=== PATIENT | female | born 1970 | race Caucasian/White ===

== ENCOUNTER 2020-02-22 02:00 | Observation (INO) | payer MEDICAID ==
[~2020-02-22] VITALS: Ht 160 cm; Wt 76.7 kg
[2020-02-22 02:18] LABS: BASOPHILS 0.5 % (0-2); EOSINOPHILS 1.5 % (0-7); HEMATOCRIT 38.6 % (36.0-48.0); HEMOGLOBIN 12.4 g/dL (12-16); LYMPHOCYTES 33.6 % (15-50); MCH 30.2 pg (26.0-34.0); MCHC 32.1 g/dL (31.0-37.0); MCV 93.9 fL (80.0-100.0); MEAN PLATELET VOLUME 11.1 fL (7.4-10.4); MONOCYTES 6.8 % (2-11); NEUTROPHILS 57.6 % (40-80); PLATELET COUNT 222 10x3/uL (130-400); RBC 4.11 10x6/uL (4.00-5.40); RDW 13.7 % (11.5-14.5)
[2020-02-22 02:23] LABS: CALCIUM 8.5 mg/dL (8.5-10.1); CARBON DIOXIDE 28.6 mmol/L (21.0-32.0); CREATININE - SERUM 0.9 mg/dL (0.6-1.3); POTASSIUM - SERUM 3.6 mmol/L (3.5-5.1)
[2020-02-22 02:28] LABS: BILIRUBIN NEGATIVE (NEGATIVE); GLUCOSE NEGATIVE (NEGATIVE); HCG URINE NEGATIVE (NEGATIVE); KETONE NEGATIVE (NEGATIVE); NITRITE NEGATIVE (NEGATIVE); UROBILINOGEN NORMAL (NORMAL)
[2020-02-22 02:30] LABS: ACETAMINOPHEN 3.2 ug/mL (10.0-30.0); ALBUMIN 3.7 g/dL (3.4-5.0); BILIRUBIN - TOTAL 0.41 mg/dL (0.2-1.3)
[2020-02-22 02:38] VITALS: BP 152/70
[2020-02-22] MEDS ORDERED: NEURONTIN 300300 MG PO (02:40)
[2020-02-22] MEDS ORDERED: LEVOXYL75 MCG PO (02:41)
[2020-02-22] MEDS ORDERED: KLONOPIN1 MG PO (02:41)
[2020-02-22] MEDS ORDERED: ROPINIROLE HCL2 MG PO (02:41)
--- NOTE | 2020-02-22 02:45 | NUR ---
JIG GRINDER SET UP OPERATOR NOTIFIED FOR MENTAL HEALTH EVAL.
[2020-02-22 03:03] LABS: UDS - AMPHET NEGATIVE QUAL (NEGATIVE); UDS - BARB NEGATIVE QUAL (NEGATIVE); UDS - BENZO POSITIVE QUAL (NEGATIVE); UDS - COCAINE POSITIVE QUAL (NEGATIVE); UDS - OPIATE POSITIVE QUAL (NEGATIVE); UDS - PCP NEGATIVE QUAL (NEGATIVE); UDS - THC NEGATIVE QUAL (NEGATIVE)
--- NOTE | 2020-02-22 03:31 | NUR ---
PATIENT IN ER T-3 BEING TREATED FOR AN OVERDOSE ON KLONIPIN. THIS PATIENT WAS GIVEN A DRUG TO "WAKE HER UP", HOWEVER SHE WAS STILL VERY DROWSY, SHE DENIES BEING SUICIDIAL BUT HER ACTION WAS HIGHLY SUGGESTIVE SO SHE WILL BE PLACED ON ONE TO ONE. GETTING THROUGH THE SUICIDE ASSESSMENT WAS VERY DIFFICULT BECAUSE SHE REMAINED DROWSY AND WAS TEARFUL, SHE ALSO HAS EXAGGERATED, BIZZARE FACIAL MOVEMENTS. SHE IS UNABLE TO COMMIT TO A SAFETY PLAN OR SIGN ANY PAPERWORK. 1-800 NUMBER IS NOT GIVEN AT THIS TIME BECAUSE SHE CAN NOT STAY AWAKE NOR IS ABLE TO COMPREHEND.
[2020-02-22 03:55] VITALS: BP 114/65
[2020-02-22 04:00] VITALS: BP 103/69
[2020-02-22 05:00] VITALS: BP 105/68
[2020-02-22 06:00] VITALS: BP 126/81
[2020-02-22 11:54] VITALS: Ht 160 cm; Wt 76.7 kg
--- NOTE | 2020-02-22 12:30 | NUR ---
REPORT RECIEVED. 1:1 CARE ASSUMED. PT IS CALM AND DENIES NEEDS.
--- NOTE | 2020-02-22 15:29 | NUR ---
SITTER AT BEDSIDE. PT CONTINUES TO EXPRESS SUICIDAL THOUGHTS. SHE IS TEARFUL AT TIMES. SUICIDE PRECAUTIONS IN PLACE.
--- NOTE | 2020-02-22 16:49 | NUR ---
PT LEFT ROOM AND WENT OUT SIDE INTO PARKING LOT. I WALKED WITH HER UP [facility] TO [place] AND CONVINCED HER TO COME BACK. SHE WALKED BACK DOWN [place] AND INSTEAD OF COMING BACK IN SAID SHE WAS GOING ACROSS [place] TO SEE HER DOCTOR. SHE WAS INFORMED BY AAMIR ORDOÑEZ NURSE AD SETTER THAT THE POLICE WOULD BE CALLED IF SHE WENT ACROSS. SHE WENT ANYWAY. I WENT WITH HER TO INSURE HER SAFETY AND WAS EVENTUALLY ABLE TO TALK HER INTO RETURNING BACK. SHE WALKED BACK TO HER ROOM. SOON AFTER GETTING BACK DR REED WAS AT BEDSIDE AND TALKED WITH HER. HE ORDERED PSYCH PLACEMENT FOR FURTHER EVAL. PT IS EMOTIONAL BUT CDOOPERATIVE AT THIS TIME.
[2020-02-22 18:30] VITALS: BP 135/86
--- NOTE | 2020-02-22 18:40 | NUR ---
PT HAS TWICE ATTEMPTED TO LEAVE AGAIN AND HAS BEEN TALKED DOWN AND IS BACK IN HER ROOM.
--- NOTE | 2020-02-22 22:10 | NUR ---
SPOKE WITH TRANSFER CENTER AND AWAITING FOR ACCEPTANCE FOR TRANFER.
[2020-02-23 03:55] LABS: BASOPHILS 0.4 % (0-2); EOSINOPHILS 2.5 % (0-7); HEMATOCRIT 40.4 % (36.0-48.0); HEMOGLOBIN 12.9 g/dL (12-16); IMMATURE GRANULOCYTES 0.2 % (0-5); LYMPHOCYTES 28.2 % (15-50); MCH 29.9 pg (26.0-34.0); MCHC 31.9 g/dL (31.0-37.0); MCV 93.5 fL (80.0-100.0); MONOCYTES 9.1 % (2-11); NEUTROPHILS 59.6 % (40-80); PLATELET COUNT 242 10x3/uL (130-400); RBC 4.32 10x6/uL (4.00-5.40); RDW 13.5 % (11.5-14.5); WBC 4.8 10x3/uL (4.8-10.8)
[2020-02-23 04:16] LABS: CALCIUM 8.4 mg/dL (8.5-10.1); CARBON DIOXIDE 25.6 mmol/L (21.0-32.0); CHLORIDE - SERUM 105 mmol/L (98-107); GLUCOSE 105 mg/dL (74-106); POTASSIUM - SERUM 3.2 mmol/L (3.5-5.1); SODIUM 140 mmol/L (136-145)
[2020-02-23 04:32] LABS: CALC OSMOLALITY 277 mosm/kg (275-300); CREATININE - SERUM 0.6 mg/dL (0.6-1.3); UREA NITROGEN 9 mg/dL (7-18); eGFR NON AFRICAN AMERICAN > 90 mL/min (90-120)
--- NOTE | 2020-02-23 07:00 | NUR ---
SLEEPING AROUSABLE TO VERBAL STIMULI, NOT COOPERATIVE, NO IGNS OF DISTRESS, VSS, SITTER AT BEDSIDE, NO NEEDS AT THIS TIME
--- NOTE | 2020-02-23 11:31 | NUR ---
MARIA A ADAME AT [facility] WILL BE HERE BY NOON
--- NOTE | 2020-02-23 12:42 | CN ---
PATIENT NAME:CHARLA VANEGAS MEDICAL RECORD: [id number] : 70 LOCATION:[id number] ADMIT DATE: 02/22/20 ACCOUNT: [id number] CONSULTING PHYSICIAN: PEDRO REED MD REFERRING PHYSICIAN: JUDY DIXON MD DATE OF CONSULTATION: 02/22/2020 IDENTIFYING DATA: The patient is a 49-year-old and she is admitted to the hospital on a voluntary basis. CHIEF COMPLAINT: Overdose. HISTORY OF PRESENT ILLNESS: The patient was found in the parking lot of [facility]. Apparently, she had had a prescription for Klonopin filled and there were 20 one mg tablets missing from it. She was also found to have opiates and cocaine in her urine. She denies using the cocaine. She says that her primary care doctor gives her Percocet for back pain. She also has a history of heroin addiction, but she says that the Percocet is required for the back pain and that the doctor who prescribes it knows that she has a history of heroin addiction. I doubt that is the case, but that is what she is telling me. She endorses numerous neurovegetative depressive symptoms as well as psychosocial stressors, associated with ongoing personal problems and a history of traumatic events. She is oriented. She is generally goal directed in her speech unless she is trying to be deliberately evasive. There are no overt psychotic symptoms. ASSESSMENT: 1. Status post overdose. 2. Major depression. 3. Cluster B personality disorder. 4. Polysubstance abuse. PLAN: The patient in my view is acutely dangerous and requires inpatient psychiatric care. She did have a high degree of lethality with a low degree of discoverability. She also was very agitated and required physical restraints earlier today as well as having elope from the hospital and trying to run across the street for some reason. She is telling me that she does not use cocaine, which leaves the results something of a mystery. On the whole, I would say her presentation is of concern and I think that she is at enough risk based upon what happened and her presentation that I am compelled to recommend inpatient psychiatric care. She also should be continued with a sitter until that transfer happens. TRANSINT:[id number] Voice Confirmation ID: [id number] DOCUMENT ID: [id number] PEDRO REED MD at 1242 CC: [id number] DICTATION DATE: 02/22/20 180 INSURANCE VERIFICATION REPRESENTATIVE: 02/22/20 182 ADM IN [place] [id number] [place] [id number]
--- NOTE | 2020-02-23 15:02 | NUR ---
DAUGHTER CUATE HERE FOR RETRIVAL OF KEYS, CAR KEYS TAKEN TO FRONT ENTRANCE OF HOSPITAL AND GIVEN TO HER
--- NOTE | 2020-02-23 19:44 | MORECARE ---
CASE MANAGEMENT DISCHARGE SUMMARY PATIENT: CHARLA VANEGAS UNIT: [id number] ADM DATE: 02/22/20 AGE: 49 : 70 SEX: F ROOM/BED: D.2310 AUTHOR: YULISA ENRIQUEZ PHYSICIAN: REFERRING PHYSICIAN: JUDY DIXON MD DATE OF SERVICE: 02/23/20 Discharge Plan Patient Name: CHARLA VANEGAS [facility] [facility] 1970 Planned Disposition: Anticipated Discharge Date: Discharge Date: 02/23/2020 Expected LOS: Initial Reviewer: [email or web address] Initial Review Date: 02/22/2020 Generated: 02/23/20 8:44 pm Patient Name: CHARLA VANEGAS Page [id number] at 1944 All edits/amendments must be made on the electronic document DICTATION DATE: 02/23/201943 MANAGER PRACTICE: MARITZA 02/23/201943 RPT#: [id number] DC DATE:02/23/20 STATUS: DIS IN [facility] [address] [place] [address] END OF REPORT
== END 2020-02-23 12:45 | disposition short-term general hospital (02) ==
LOC: D.ER 02:00 → OBSVTIME 03:23 → D.ICU 03:23
PROVIDERS: Emergency Medicine; ADMIT Internal Medicine Nephrology; ATTEND Internal Medicine Nephrology
DX: T42.4X2A Poisoning by benzodiazepines, intentional self-harm, initial encounter (principal); G92 Toxic encephalopathy; F14.10 Cocaine abuse, uncomplicated; F17.203 Nicotine dependence unspecified, with withdrawal; E03.9 Hypothyroidism, unspecified; F11.10 Opioid abuse, uncomplicated; F41.9 Anxiety disorder, unspecified; F32.9 Major depressive disorder, single episode, unspecified; F60.89 Other specific personality disorders